=== PATIENT | male | born 1955 ===

== ENCOUNTER 2017-11-12 09:17 | Emergency (ER) | payer OTHER ==
[2017-11-12 09:20] VITALS: BMI 39.1
[2017-11-12 09:21] VITALS: RESP 20; O2SAT 98
--- NOTE | 2017-11-12 09:47 | ED PDOC ---
Lower Extremity Pain/Injury Time Seen by Provider: 11/12/17 09:38 Chief Complaint (Nursing): Lower Extremity Problem/Injury Chief Complaint (Provider): Right Lower Leg Pain History Per: Patient History/Exam Limitations: no limitations Onset/Duration Of Symptoms: Other (chronic) Current Symptoms Are (Timing): Still Present Additional Complaint(s): Ken is a 62 y/o male who presents to the ED complaining of chronic right lower leg pain. Patient was recently discharged in October for same with rx for Cipro which he finished. He denies fever. PMD: None Provided Past Medical History Reviewed: Historical Data, Nursing Documentation, Vital Signs Vital Signs: Last Vital Signs Temp 98.9 F 11/12/17 09:20 Pulse 106 H 11/12/17 09:20 Resp 20 11/12/17 09:20 BP 159/78 H 11/12/17 09:20 Pulse Ox 98 11/12/17 09:20 - Medical History PMH: Diabetes, HTN, Hypercholesterolemia Denies: Chronic Kidney Disease - Family History Family History: States: Unknown Family Hx - Immunization History Hx Tetanus Toxoid Vaccination: No Hx Influenza Vaccination: No Hx Pneumococcal Vaccination: No - Home Medications Home Medications: Ambulatory Orders Medication Instructions Recorded Lactobacillus Acidophilus 1 each PO DAILY #30 capsule 10/16/17 [Probiotic] Lisinopril [Zestril] 20 mg PO DAILY #30 tab 10/16/17 Simvastatin 10 mg PO QPM #30 tablet 10/16/17 metFORMIN [glucOPHAGE] 500 mg PO DAILY #30 tab 10/16/17 Cephalexin [cephalexin] 500 mg PO QID #28 cap 11/12/17 - Allergies Allergies/Adverse Reactions: Allergies Allergy/AdvReac Type Severity Reaction Status Date / Time No Known Allergies Allergy Verified 10/15/17 14:05 Review of Systems ROS Statement: Except As Marked, All Systems Reviewed And Found Negative Constitutional: Negative for: Fever Musculoskeletal: Positive for: Leg Pain (lower right, chronic) Physical Exam - Reviewed Nursing Documentation Reviewed: Yes Vital Signs Reviewed: Yes - Physical Exam Appears: Positive for: Well, Non-toxic, No Acute Distress Cardiovascular/Chest: Positive for: Regular Rate, Rhythm. Negative for: Murmur Respiratory: Positive for: Normal Breath Sounds. Negative for: Respiratory Distress Extremity: Positive for: Other (bilateral chronic appearing dermatitis with non pitting edema and superficial ulcerations; (-) active discharge, bleeding, or fluctuance) Neurologic/Psych: Positive for: Alert, Oriented - Laboratory Results Result Diagrams: 11/12/17 10:00 11/12/17 10:00 - ECG O2 Sat by Pulse Oximetry: 98 (RA) Pulse Ox Interpretation: Normal Medical Decision Making Medical Decision Making: Time: 9:41 Initial Impression: Chronic Leg Dermatitis Initial Plan: --CMP --CBC --PTT --Prothrombin Time --Blood Culture --Accucheck --Podiatry Consult Time: 10:15 --US Duplex Lower Extremity Time: 12:30 US DUPLEX FINDINGS: COMMON FEMORAL VEIN: Right CFV: Unremarkable. Left CFV: Unremarkable. SUPERFICIAL FEMORAL VEIN: Right SFV: Unremarkable. Left SFV: Unremarkable. POPLITEAL VEIN: Right Popliteal: Unremarkable. Left Popliteal: Unremarkable. POSTERIOR TIBIAL VEIN: Right PTV: Could not be evaluated due to overlying bandage Left PTV: Could not be evaluated due to overlying bandage OTHER FINDINGS: There are enlarged lymph nodes noted in the inguinal region right larger than left IMPRESSION: No ultrasound Doppler evidence of Pilar lower extremity deep vein thrombosis up to the level of the knee. The calf veins could not be evaluated due to overlying bandage. Mildly enlarged bilateral inguinal region lymph nodes right more than left. Pt evaluated by Podiatry resident, placed compression dressing, recommends Rx Keflex, follow-up in Podiatry Clinic on Friday. Scribe Attestation: Documented by Joseph Chen, acting as a scribe for Dr. Kristina Cantrell MD. Provider Scribe Attestation: All medical record entries made by the Scribe were at my direction and personally dictated by me. I have reviewed the chart and agree that the record accurately reflects my personal performance of the history, physical exam, medical decision making, and the department course for this patient. I have also personally directed, reviewed, and agree with the discharge instructions and disposition. Disposition - Clinical Impression Clinical Impression: Chronic venous stasis dermatitis of both lower extremities - Disposition Referrals: Podiatry Clinic [Outside] Disposition: Routine/Home Disposition Time: 12:42 Condition: STABLE Additional Instructions: PODIATRY CLINIC ON FRIDAY (11/17/17). Prescriptions: Cephalexin [cephalexin] 500 mg PO QID #28 cap Instructions: Chronic Wound Care (ED), Stasis Dermatitis (ED) Forms: [employer] (Icelandic) Print Language: KOREAN
[2017-11-12 10:04] LABS: BASO # 0.1 K/uL (0.0-0.2); BASO % 1.3 % (0.0-2.0); EOS # 0.4 K/uL (0.0-0.7); EOS % 4.3 % (0.0-4.0); LYMPH # 1.9 K/uL (1.0-4.3); LYMPH % 18.7 % (20.0-40.0); MEAN CELL VOLUME 83.8 fl (80.0-94.0); MEAN CORPUSCULAR HEMOGLOBIN 28.6 pg (27.0-31.0); MEAN CORPUSCULAR HGB CONC 34.1 g/dL (33.0-37.0); MEAN PLATELET VOLUME 7.1 fl (7.2-11.7); MONO # 0.9 K/uL (0.0-0.8); MONO % 8.7 % (0.0-10.0); NEUT # 6.8 K/uL (1.8-7.0); RBC 4.19 Mil/uL (4.40-5.90); RED CELL DISTRIBUTION WIDTH 13.6 % (11.5-14.5); WHITE BLOOD COUNT 10.1 K/uL (4.8-10.8)
[2017-11-12 10:28] LABS: ALBUMIN 3.8 g/dL (3.5-5.0); ALT/SGPT 17 U/L (21-72); AST/SGOT 17 U/L (17-59); BLOOD UREA NITROGEN 13 mg/dl (9-20); CALCIUM 9.2 mg/dL (8.4-10.2); GFR AFRICAN-AMERICAN > 60; GFR NON-AFRICAN AMERICAN > 60
[2017-11-12 10:29] LABS: INR 1.2 (0.9-1.2); PARTIAL THROMBOPLASTIN TIME 25.2 Seconds (25.6-37.1)
--- NOTE | 2017-11-12 12:31 | US ---
PROCEDURE: Bilateral lower extremity venous duplex Doppler. HISTORY: BLE edema COMPARISON: None available. TECHNIQUE: Bilateral common femoral, superficial femoral, popliteal and posterior tibial veins were evaluated. Flow was assessed with color Doppler, compressibility, assessment of phasic flow and augmentation response. FINDINGS: COMMON FEMORAL VEIN: Right CFV: Unremarkable. Left CFV: Unremarkable. SUPERFICIAL FEMORAL VEIN: Right SFV: Unremarkable. Left SFV: Unremarkable. POPLITEAL VEIN: Right Popliteal: Unremarkable. Left Popliteal: Unremarkable. POSTERIOR TIBIAL VEIN: Right PTV: Could not be evaluated due to overlying bandage Left PTV: Could not be evaluated due to overlying bandage OTHER FINDINGS: There are enlarged lymph nodes noted in the inguinal region right larger than left IMPRESSION: No ultrasound Doppler evidence of Pilar lower extremity deep vein thrombosis up to the level of the knee. The calf veins could not be evaluated due to overlying bandage. Mildly enlarged bilateral inguinal region lymph nodes right more than left.
[2017-11-12 13:26] VITALS: BP 128/78; PULSE 78; TEMP 97
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
== END 2017-11-12 13:25 | disposition home or self-care (01) ==
LOC: H.ER 09:17
DX: I87.2 Venous insufficiency (chronic) (peripheral) (principal); I87.8 Other specified disorders of veins; E11.9 Type 2 diabetes mellitus without complications; Z79.84 Long term (current) use of oral hypoglycemic drugs; I10 Essential (primary) hypertension; E78.00 Pure hypercholesterolemia, unspecified; L30.9 Dermatitis, unspecified

== ENCOUNTER 2018-11-13 06:19 | Emergency (ER) | payer OTHER, SELFPAY ==
[2018-11-13 06:19] VITALS: BMI 39.1
[2018-11-13 06:44] VITALS: BP 147/82; PULSE 79; RESP 18; TEMP 98.3; O2SAT 97
[2018-11-13 08:18] LABS: BASO # 0.1 K/uL (0.0-0.2); BASO % 0.6 % (0.0-2.0); EOS # 0.1 K/uL (0.0-0.7); EOS % 1.1 % (0.0-4.0); HEMOGLOBIN 12.6 g/dL (12.0-18.0); LYMPH # 1.4 K/uL (1.0-4.3); LYMPH % 15.9 % (20.0-40.0); MEAN CELL VOLUME 84.3 fl (80.0-94.0); MEAN CORPUSCULAR HEMOGLOBIN 28.1 pg (27.0-31.0); MEAN CORPUSCULAR HGB CONC 33.3 g/dL (33.0-37.0); MEAN PLATELET VOLUME 7.4 fl (7.2-11.7); MONO # 0.6 K/uL (0.0-0.8); MONO % 6.9 % (0.0-10.0); NEUT # 6.6 K/uL (1.8-7.0); NEUT % 75.5 % (50.0-75.0); RBC 4.5 Mil/uL (4.40-5.90); RED CELL DISTRIBUTION WIDTH 13.9 % (11.5-14.5); WHITE BLOOD COUNT 8.7 K/uL (4.8-10.8)
[2018-11-13 08:31] LABS: BLOOD UREA NITROGEN 20 mg/dl (9-20); CALCIUM 9.1 mg/dL (8.4-10.2); GFR NON-AFRICAN AMERICAN > 60
[2018-11-13 08:40] LABS: B-TYPE NATRIURETIC PEPTIDE 50.1 pg/ml (0-900)
--- NOTE | 2018-11-13 09:22 | ED PDOC ---
Lower Extremity Pain/Injury Time Seen by Provider: 11/13/18 07:31 Chief Complaint (Nursing): Lower Extremity Problem/Injury Chief Complaint (Provider): Lower Extremity Problem/Injury History Per: Patient History/Exam Limitations: no limitations Onset/Duration Of Symptoms: Days (x1) Additional Complaint(s): 63 years old male with a history of hypertension, diabetes and chronic leg swelling presents to ER for evaluation of bilateral leg swelling and pain. Patient states he has had legs swelling for months but has gotten worse in the last couple of days and started to have pain yesterday. He reports he always has skin problem and was diagnosed before with dermatitis on both sides. Patient states he saw Dr. Roldan, a director channel, in the past for ulcer circulation in legs. He denies any recent injury, chest pain or shortness of breath. PMD: None provided Past Medical History Reviewed: Historical Data, Nursing Documentation, Vital Signs Vital Signs: Last Vital Signs Temp 98.3 F 11/13/18 06:40 Pulse 79 11/13/18 06:40 Resp 18 11/13/18 06:40 BP 147/82 11/13/18 06:40 Pulse Ox 97 11/13/18 06:40 - Medical History PMH: Diabetes, HTN, Hypercholesterolemia Denies: Chronic Kidney Disease Other PMH: Chronic leg swelling - Surgical History Surgical History: No Surg Hx - Family History Family History: States: Unknown Family Hx - Social History Current smoker - smoking cessation education provided: No Alcohol: Social Drugs: Denies - Immunization History Hx Tetanus Toxoid Vaccination: No Hx Influenza Vaccination: No Hx Pneumococcal Vaccination: No - Home Medications Home Medications: Ambulatory Orders Medication Instructions Recorded RX: Lactobacillus Acidophilus 1 each PO DAILY #30 capsule 10/16/17 [Probiotic] RX: Lisinopril [Zestril] 20 mg PO DAILY #30 tab 10/16/17 RX: Simvastatin 10 mg PO QPM #30 tablet 10/16/17 RX: metFORMIN [glucOPHAGE] 500 mg PO DAILY #30 tab 10/16/17 Cephalexin [cephalexin] 500 mg PO QID #28 cap 11/12/17 Sulfamethoxazole/Trimethoprim 1 tab PO BID #14 tab 11/13/18 [Bactrim DS 800 mg-160 mg] - Allergies Allergies/Adverse Reactions: Allergies Allergy/AdvReac Type Severity Reaction Status Date / Time vancomycin Allergy RASH Verified 11/13/18 17:13 Review of Systems ROS Statement: Except As Marked, All Systems Reviewed And Found Negative Cardiovascular: Negative for: Chest Pain Respiratory: Negative for: Shortness of Breath Musculoskeletal: Positive for: Leg Pain (with swelling bilaterally). Negative for: Other (Recent injury to legs bilaterally) Physical Exam - Reviewed Nursing Documentation Reviewed: Yes Vital Signs Reviewed: Yes - Physical Exam Appears: Positive for: Well, No Acute Distress Head Exam: Positive for: ATRAUMATIC, NORMOCEPHALIC Skin: Positive for: Normal Color, Warm, Dry Neck: Positive for: Normal, Painless ROM, Supple Cardiovascular/Chest: Positive for: Regular Rate, Rhythm. Negative for: Murmur Respiratory: Positive for: Normal Breath Sounds. Negative for: Respiratory Distress Gastrointestinal/Abdominal: Positive for: Normal Exam, Soft. Negative for: Tenderness Back: Positive for: Normal Inspection. Negative for: L CVA Tenderness, R CVA Tenderness Extremity: Positive for: Normal ROM, Tenderness (diffused to bilateral legs), Swelling (equal and symmetric below knees bilaterally), Other (Diffused redness on lower legs bilaterally. Muliple incrusted skin. No open wounds, discharge or postules.) Neurologic/Psych: Positive for: Alert, Oriented (x3) - Laboratory Results Result Diagrams: 11/13/18 08:01 11/13/18 08:01 Lab Results: NT-Pro-B Natriuret Pep 50.1 pg/ml (0-900) 11/13/18 08:01 - ECG O2 Sat by Pulse Oximetry: 97 (RA) Pulse Ox Interpretation: Normal Medical Decision Making Medical Decision Making: Time: 0736 Initial impression: Bilateral leg swelling and pain. Differential includes but not limited to DVT, CHF, stasis dermatitis and possible early cellulitis. Initial plan: --BTN --BMP --CBC --Erythrocyte sedimentation rate --Blood culture --Wound culture and gram stain --US Duplex Lower Extremity Vein Bilaterally 13:07 US Duplex Lower Extremity FINDINGS: COMMON FEMORAL VEIN: Right CFV: Unremarkable. Left CFV: Unremarkable. SUPERFICIAL FEMORAL VEIN: Right SFV: Unremarkable. Left SFV: Unremarkable. POPLITEAL VEIN: Right Popliteal: Unremarkable. Left Popliteal: Unremarkable. POSTERIOR TIBIAL VEIN: Right PTV: Unremarkable. Left PTV: Unremarkable. OTHER FINDINGS: Mildly enlarged inguinal lymph nodes bilaterally. IMPRESSION: No evidence of deep venous thrombosis in the right or left lower extremity.. Mild bilateral inguinal lymphadenopathy. Patient seen by podiatry team and discussed with their attending. Per podiatry patient can be discharged with follow up. Scribe Attestation: Documented by Eva Valdovinos, acting as a scribe for Karson Antoine MD. Provider Scribe Attestation: All medical record entries made by the Scribe were at my direction and personall y dictated by me. I have reviewed the chart and agree that the record accurately reflects my personal performance of the history, physical exam, medical decision making, and the department course for this patient. I have also personally directed, reviewed, and agree with the discharge instructions and disposition. Disposition - Clinical Impression Clinical Impression: Stasis dermatitis, Cellulitis - Patient ED Disposition Is Patient to be Admitted: No Doctor Will See Patient In The: Office Counseled Patient/Family Regarding: Studies Performed, Diagnosis, Need For Followup - Disposition Referrals: Carlos Cedeño DPM [Staff Provider] - Disposition: Routine/Home Disposition Time: 16:18 Condition: GOOD Additional Instructions: MARY KAY SELF, thank you for letting us take care of you today. Your provider was Karson Antoine MD and you were treated for LEG SWELLING. The emergency medical care you received today was directed at your acute symptoms. If you were prescribed any medication, please fill it and take as directed. It may take several days for your symptoms to resolve. Return to the Emergency Department if your symptoms worsen, do not improve, or if you have any other problems. Please contact your doctor or call one of the physicians/clinics you have been referred to that are listed on the Patient Visit Information form that is included in your discharge packet. Bring any paperwork you were given at discharge with you along with any medications you are taking to your follow up visit. Our treatment cannot replace ongoing medical care by a primary care provider outside of the emergency department. Thank you for allowing the [facility] [employer] team to be part of your care today. If you had an X-Ray or CT scan: A Radiologist will review the ED reading if any change in treatment is needed we will contact you. If you had a blood, urine, or wound culture: It will take several days for the results, if any change in treatment is needed we will contact you. If you had an STI test: It will take 48 hours for the results. Please call after 1 week if you have not heard back. Prescriptions: Sulfamethoxazole/Trimethoprim [Bactrim DS 800 mg-160 mg] 1 tab PO BID #14 tab Instructions: Dermatitis, Cellulitis (Skin Infection), Adult (DC)
--- NOTE | 2018-11-13 13:18 | US ---
Date of service: 11/13/2018 PROCEDURE: Bilateral lower extremity venous duplex Doppler. HISTORY: leg swelling bilateral and pain COMPARISON: None available. TECHNIQUE: Bilateral common femoral, superficial femoral, popliteal and posterior tibial veins were evaluated. Flow was assessed with color Doppler, compressibility, assessment of phasic flow and augmentation response. FINDINGS: COMMON FEMORAL VEIN: Right CFV: Unremarkable. Left CFV: Unremarkable. SUPERFICIAL FEMORAL VEIN: Right SFV: Unremarkable. Left SFV: Unremarkable. POPLITEAL VEIN: Right Popliteal: Unremarkable. Left Popliteal: Unremarkable. POSTERIOR TIBIAL VEIN: Right PTV: Unremarkable. Left PTV: Unremarkable. OTHER FINDINGS: Mildly enlarged inguinal lymph nodes bilaterally. IMPRESSION: No evidence of deep venous thrombosis in the right or left lower extremity.. Mild bilateral inguinal lymphadenopathy.
[2018-11-13] MEDS ORDERED: Vancomycin 1 g Inj ONE (15:36)
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
== END 2018-11-13 18:35 | disposition home or self-care (01) ==
LOC: H.ER 06:19
DX: R60.0 Localized edema (principal); I87.2 Venous insufficiency (chronic) (peripheral); L03.119 Cellulitis of unspecified part of limb; E11.9 Type 2 diabetes mellitus without complications; E78.00 Pure hypercholesterolemia, unspecified; I10 Essential (primary) hypertension; Z79.84 Long term (current) use of oral hypoglycemic drugs